=== PATIENT | female | born 1955 | race Asian ===

== ENCOUNTER → 2017-06-07 | Outpatient (CLI) | payer OTHER | END | disposition home or self-care (01) | LOC: NUCLEAR 13:06 | DX: I10 Essential (primary) hypertension (principal); M54.5 Low back pain; E03.8 Other specified hypothyroidism; G62.89 Other specified polyneuropathies; E55.9 Vitamin D deficiency, unspecified; Z12.31 Encounter for screening mammogram for malignant neoplasm of breast ==

== ENCOUNTER 2017-06-14 09:59 | Outpatient (CLI) | payer OTHER | END 2017-06-14 10:05 | disposition home or self-care (01) | LOC: SONOGRAMA 09:59 | DX: I10 Essential (primary) hypertension (principal); M54.5 Low back pain; E03.8 Other specified hypothyroidism; G62.9 Polyneuropathy, unspecified; E55.9 Vitamin D deficiency, unspecified; Z12.31 Encounter for screening mammogram for malignant neoplasm of breast ==

== ENCOUNTER 2020-02-11 08:59 | Outpatient (CLI) | payer OTHER | END 2020-02-11 10:25 | disposition home or self-care (01) | LOC: MAMO-SONO 08:59 | PROVIDERS: ATTEND Internal Medicine | DX: D13.4 Benign neoplasm of liver (principal); G62.89 Other specified polyneuropathies; I10 Essential (primary) hypertension; E55.9 Vitamin D deficiency, unspecified; M54.5 Low back pain; Z12.31 Encounter for screening mammogram for malignant neoplasm of breast; E03.8 Other specified hypothyroidism; B19.10 Unspecified viral hepatitis B without hepatic coma; Z86.010 Personal history of colon polyps ==

== ENCOUNTER 2021-11-24 07:59 | Outpatient (CLI) | payer OTHER | END 2021-11-24 08:17 | disposition home or self-care (01) | LOC: MAMO-SONO 07:59 | PROVIDERS: ATTEND Internal Medicine | DX: Z12.31 Encounter for screening mammogram for malignant neoplasm of breast (principal) ==

== ENCOUNTER 2021-12-06 12:02 | Outpatient (CLI) | payer OTHER | END 2021-12-06 12:12 | disposition home or self-care (01) | LOC: MAMO-SONO 12:02 | PROVIDERS: ATTEND Internal Medicine | DX: N60.11 Diffuse cystic mastopathy of right breast (principal) ==

== ENCOUNTER 2022-01-18 08:16 | Outpatient (CLI) | payer OTHER | END 2022-01-18 08:18 | disposition home or self-care (01) | LOC: SONOGRAMA 08:16 | PROVIDERS: ATTEND Internal Medicine Gastroenterology | DX: R10.13 Epigastric pain (principal); B17.0 Acute delta-(super) infection of hepatitis B carrier ==

== ENCOUNTER → 2023-05-17 | Outpatient (CLI) | payer OTHER | END | disposition home or self-care (01) | LOC: NUCLEAR 14:18 | PROVIDERS: ATTEND Internal Medicine | DX: M81.0 Age-related osteoporosis without current pathological fracture (principal) ==

== ENCOUNTER → 2023-07-31 | Outpatient (CLI) | payer OTHER | END | disposition home or self-care (01) | LOC: MAMO-SONO 08:15 | PROVIDERS: ATTEND Internal Medicine | DX: I10 Essential (primary) hypertension (principal); Z12.31 Encounter for screening mammogram for malignant neoplasm of breast; E55.9 Vitamin D deficiency, unspecified; G62.9 Polyneuropathy, unspecified; Z13.820 Encounter for screening for osteoporosis ==

== ENCOUNTER 2023-08-07 08:38 | Outpatient (CLI) | payer OTHER | END 2023-08-07 08:47 | disposition home or self-care (01) | LOC: SONOGRAMA 08:38 | PROVIDERS: ATTEND Internal Medicine | DX: E55.9 Vitamin D deficiency, unspecified (principal); G62.9 Polyneuropathy, unspecified; I10 Essential (primary) hypertension; Z12.31 Encounter for screening mammogram for malignant neoplasm of breast; Z13.820 Encounter for screening for osteoporosis ==

== ENCOUNTER 2023-11-23 11:19 | Emergency (ER) | payer OTHER ==
[~2023-11-23] VITALS: Ht 162.6 cm; Wt 57.6 kg
[2023-11-23] MEDS ORDERED: KETOROLAC TROMETHAMINE 60 MG VIAL IM ONE ×2 (13:00→13:02)
[2023-11-23] MEDS ORDERED: CEFTRIAXONE SODIUM 2,000 MG VIAL IM ONE (13:00)
[2023-11-23] MEDS ORDERED: TETANUS & DIPHTHERIA TOX,ADULT 0.5 ML VIAL IM ONE (13:00)
[2023-11-23] MEDS ORDERED: LIDOCAINE HCL 1% 10ML VIAL IJ ONE (13:00)
[2023-11-23] MEDS ORDERED: CEFTRIAXONE SODIUM 2,000 MG VIAL ONE (13:02)
[2023-11-23] MEDS ORDERED: TETANUS DIPHTHERIA TOX. ADSOR 5 ML VIAL IM ONE (13:03)
[2023-11-23] MEDS ORDERED: LIDOCAINE HCL 1% 10ML VIAL ONE ×2 (13:03→13:06)
[2023-11-23] MEDS ORDERED: CEPHALEXIN500 MG PO (14:48)
== END 2023-11-23 15:43 | disposition home or self-care (01) ==
LOC: ER 11:19
DX: S61.412A Laceration without foreign body of left hand, initial encounter (principal); W45.8XXA Other foreign body or object entering through skin, initial encounter; Y93.89 Activity, other specified; Y92.89 Other specified places as the place of occurrence of the external cause; Y99.8 Other external cause status; I10 Essential (primary) hypertension
CPT/HCPCS: 12002; 73130; 96372; 99283; J0696; J1885

== ENCOUNTER 2023-12-05 13:25 | Emergency (ER) | payer OTHER ==
[~2023-12-05] VITALS: Ht 175.3 cm; Wt 59.0 kg
[~2023-12-05 13:25] MED LIST: CEPHALEXIN500 MG PO
[2023-12-05] MEDS ORDERED: AZOR 10-20 MG1 EACH PO (13:52)
== END 2023-12-05 14:30 | disposition home or self-care (01) ==
LOC: ER 13:26
DX: Z48.02 Encounter for removal of sutures (principal)

== ENCOUNTER 2024-10-26 10:39 | Outpatient (CLI) | payer OTHER ==
[~2024-10-26 10:39] MED LIST changes: +AZOR 10-20 MG1 EACH PO
== END 2024-10-26 10:46 | disposition home or self-care (01) ==
LOC: MAMO-SONO 10:39
PROVIDERS: ATTEND Internal Medicine
DX: E55.9 Vitamin D deficiency, unspecified (principal); G62.9 Polyneuropathy, unspecified; I10 Essential (primary) hypertension; N20.0 Calculus of kidney; Z12.31 Encounter for screening mammogram for malignant neoplasm of breast; Z13.820 Encounter for screening for osteoporosis